=== PATIENT | male | born 1965 | race Caucasian/White ===

== ENCOUNTER → 2017-11-11 16:26 | Outpatient (CLI) | payer BC, SELFPAY ==
--- NOTE | 2017-11-11 16:39 | XR_ITS ---
XR chest 2V HISTORY: ITS.REASON: RT. SIDED ABD. PAIN; RT. LOWER CHEST PAIN ORDERING PHYSICIAN: Viviane Sanders PATIENT AGE: 52 years COMPARISON: 09/26/2010 FINDINGS: The cardiomediastinal silhouette and pulmonary vascularity are within normal limits. The lungs are clear without infiltrates, suspicious nodules, or pleural effusions. No acute bony abnormalities. IMPRESSION: No change with no acute finding
== END ==
PROVIDERS: PCP Nurse Practitioner; Visit Provider Nurse Practitioner
DX: R10.9 Unspecified abdominal pain (principal)
CPT/HCPCS: 71046

== ENCOUNTER → 2017-11-15 09:16 | Outpatient (CLI) | payer BC, SELFPAY ==
--- NOTE | 2017-11-15 09:20 | US_ITS ---
US abdomen limited HISTORY:Right upper quadrant pain. Abdominal pain ORDERING PHYSICIAN: Viviane Sanders PATIENT AGE: 52 years Comparison: Ultrasound right upper quadrant [address] abdomen from 2012 PROCEDURE Sagittal, transverse and decubitus imaging of right upper quadrant performed FINDINGS. Pancreas. Unremarkable. Head body and medial tail are fairly well visualized in satisfactory Liver. Diffuse fatty changes liver. No focal lesions no bilirubin ductal dilatation. Portal vein with normal direction flow and size. ... Gallbladder surgically absent. Right kidney: Unremarkable appearing. No hydronephrosis 11.8 cm in length cortex well-maintained. IMPRESSION: 1. Gallbladder surgically absent 2.. Fatty changes liver. 3. Otherwise unremarkable right quadrant ultrasound
== END ==
PROVIDERS: PCP Nurse Practitioner; Visit Provider Nurse Practitioner
DX: R10.9 Unspecified abdominal pain (principal)
CPT/HCPCS: 76705

== ENCOUNTER → 2019-12-23 16:24 | Outpatient (CLI) | payer OTHER, SELFPAY ==
[2019-12-23 18:23] LABS: Coronavirus 19 IgG Antibody Negative (Negative); Coronavirus 19 IgM Antibody Negative (Negative)
== END ==
PROVIDERS: PCP Family Medicine; Visit Provider Family Medicine
DX: Z03.818 Encounter for observation for suspected exposure to other biological agents ruled out (principal)
CPT/HCPCS: 36415; 86328

== ENCOUNTER 2020-12-25 14:37 | Emergency (ER) | payer OTHER, SELFPAY ==
[2020-12-25 15:22] VITALS: BP 132/77; PULSE 77; RESP 19; TEMP 36.6; O2SAT 98; BMI 38.7
--- NOTE | 2020-12-25 15:37 | HMH.EDUTC ---
[facility] [place] Clinical Impression: Sinusitis Qualifiers: Sinusitis location: unspecified location Chronicity: acute Recurrence: non-recurrent Qualified Code(s): J01.90 - Acute sinusitis, unspecified Disposition: Home, Self-Care Condition on Discharge: Good Instructions: Sinusitis, DI for Sinusitis Additional Instructions: Drink plenty of fluids. Take tylenol or ibuprofen for pain or fever. Take the medications as directed. Follow up with your regular doctor. GO TO THE ER FOR ANY WORSENING SYMPTOMS Prescriptions: guaiFENesin [Mucinex 600mg tablet] 1 - 2 tab PO BIDP PRN #30 tab PRN Reason: Congestion Transmission Status: Received by [id number] Benzonatate [Tessalon Perle 100mg Cap] 100 mg PO TIDP PRN #30 cap PRN Reason: Cough Transmission Status: Received by [id number] Azithromycin [Z-Henrique 250mg Tab*] 250 mg PO UD DOSE PK #6 tab Transmission Status: Received by [id number] Referrals: Sonny Patten MD [Primary Care Provider] - Time of Disposition: 15:52 Medical Decision Making - Medical Records Medical records reviewed: No: I reviewed the patient's medical records. - Pola Inquiry Pt receiving controlled substance: No Vital Signs: 12/25/20 15:22 12/25/20 15:58 Temperature 97.9 F 98.4 F Temperature Source Oral Pulse Rate 77 Pulse Rate [Left] 77 Respiratory Rate 19 18 Blood Pressure 132/77 Blood Pressure [Right Arm] 132/77 Blood Pressure Mean [Right Arm] 95 02 Sat by Pulse Oximetry 98 Orders (Tests/Meds): ED MEDICATIONS Discontinued Medications Generic Name Dose Route Start Last Admin Trade Name Freq PRN Reason Stop Dose Admin Methylprednisolone Sodium Succinate 125 mg 12/25/20 15:39 12/25/20 15:52 Methylprednisolone Sod Succ 125mg Vial IM 12/25/20 15:40 125 mg ONCE ONE Administration Medical Decision Narrative: He refused a covid-19 test [facility] [place] - General Stated complaint: upper respiratory Time Seen by Provider: 12/25/20 15:37 Mode of Arrival: Ambulatory Source of Information: Patient Limitations: No Limitations Description of Symptoms (Recalled from Triage Doc. by RN): pt c/o head and chest congestion HEENT Symptoms (Recalled from RN notes): Yes (sinus congestion) Resp Symptoms (Recalled from RN notes): Yes (chest congestion) Skin Symptoms (Recalled from RN notes): No MS Symptoms (Recalled from RN notes): No Functional Status (Recalled from RN notes): na - History of Present Illness Provider Complaint: He states that he has had sinus congestion and sinus pressure for the past 3 days. He denies any covid-19 exposure. He has not been vaccinated, but he works from home and is not around anyone very often. - Related Data Home Medications Medication Instructions Recorded Confirmed [facility] wort 300 mg tablet 300 mg PO BID tab 04/04/17 cetirizine 10 mg tablet 10 mg PO ONCE tab 04/04/17 clopidogrel 75 mg tablet 10 mg PO ONCE tab 04/04/17 fluticasone 100 mcg-salmeterol 50 1 puff INHALATION BID 04/04/17 mcg/dose blistr powdr for inhalation glyburide 5 mg tablet 2.5 mg PO BID tab 04/04/17 guaifenesin 600 mg tablet, 400 mg PO BID PRN tab 04/04/17 extended release 12 hr lisinopril 10 mg tablet 5 mg PO ONCE tab 04/04/17 metformin 500 mg tablet 500 mg PO BID 04/04/17 metoprolol tartrate 100 mg tablet 100 mg PO ONCE tab 04/04/17 montelukast 10 mg tablet 10 mg PO ONCE tab 04/04/17 pravastatin 20 mg tablet 10 mg PO ONCE tab 04/04/17 Previous Rx's Medication Instructions Recorded Azithromycin [Z-Henrique 250mg Tab*] 250 mg PO UD DOSE PK #6 tab 12/25/20 Benzonatate [Tessalon Perle 100mg 100 mg PO TIDP PRN #30 cap 12/25/20 Cap] guaiFENesin [Mucinex 600mg tablet] 1 - 2 tab PO BIDP PRN #30 tab 12/25/20 Allergies Allergy/AdvReac Type Severity Reaction Status Date / Time codeine Allergy Intermediate Verified 04/04/17 11:00 Diphenhydramine Allergy Unknown Uncoded 04/04/17 10:59
[2020-12-25 15:58] VITALS: BP 132/77; PULSE 77; RESP 18; TEMP 36.9
== END 2020-12-25 16:00 | disposition home or self-care (01) ==
PROVIDERS: Emergency Provider Nurse Practitioner Family; PCP Family Medicine
DX: J01.90 Acute sinusitis, unspecified (principal)
CPT/HCPCS: 96372; 99202; G0463

== ENCOUNTER 2021-09-02 08:55 | Emergency (ER) | payer OTHER, SELFPAY ==
[2021-09-02 09:12] VITALS: BP 126/82; PULSE 68; RESP 16; TEMP 36.4; O2SAT 97; BMI 38.7
--- NOTE | 2021-09-02 09:15 | HMH.EDUTC ---
[facility] [place] Disposition Clinical Impression: Puncture wound of left middle finger, Need for Tdap vaccination Diabetes Qualifiers: Diabetes mellitus type: type 2 Diabetes mellitus custodial insulin use: unspecified medical terminologist insulin use status Diabetes mellitus complication status: with other specified complication Qualified Code(s): E11.69 - Type 2 diabetes mellitus with other specified complication Disposition: Home, Self-Care Condition on Discharge: Good Instructions: DI for Puncture Wound, Tetanus, Diphtheria, Pertussis (Tdap) Vaccine Additional Instructions: Keep the wound clean and dry. Watch the for signs of infection, such as redness, swelling, drainage, fever. etc. Take tylenol for pain. Follow up with your regular doctor. GO TO THE ER FOR ANY WORSENING SYMPTOMS OR CONCERNS. Prescriptions: Mupirocin [Bactroban 2% Ointment 22gm tube] 1 applicatio TP TID 7 Days #1 gm Transmission Status: [id number] cephALEXin [cephALEXin 500mg capsule] 500 mg PO Q6H 10 Days #40 cap Transmission Status: Received by [id number] Referrals: Carolyne Anderosn APRN [Primary Care Provider] - Time of Disposition: 09:43 Medical Decision Making - Medical Records Medical records reviewed: No: I reviewed the patient's medical records. - Pola Inquiry Pt receiving controlled substance: No Vital Signs: 09/02/21 09:12 09/02/21 09:55 Temperature 97.5 F L 97.5 F L Temperature Source Oral Pulse Rate 68 Pulse Rate [Left Radial] 68 Respiratory Rate 16 16 Blood Pressure 126/82 Blood Pressure [Right Arm] 126/82 Blood Pressure Mean [Right Arm] 96 02 Sat by Pulse Oximetry 97 Orders (Tests/Meds): ED MEDICATIONS Discontinued Medications Generic Name Dose Route Start Last Admin Trade Name Freq PRN Reason Stop Dose Admin Tetanus Immune Globulin 250 unit 09/02/21 09:15 09/02/21 09:16 Tetanus Immune Globulin 250 Units IM 09/02/21 09:16 Not Given ONCE ONE Tetanus/Diphtheria Toxoids 0.5 ml 09/02/21 09:17 09/02/21 09:18 Tetanus-Diphth Toxoid, Adult 0.5ml Syr IM 09/02/21 09:18 0.5 ml .ONCE ONE Administration [facility] [place] HPI - General Stated complaint: finger lac 09/01 Time Seen by Provider: 09/02/21 09:15 Description of Symptoms (Recalled from Triage Doc. by RN): patient comes in today for a tetanus shot. patient states that a carie nail pierced his skin on his left middle finger. patient also states that last tetanus shot was over 20 years ago HEENT Symptoms (Recalled from RN notes): No Resp Symptoms (Recalled from RN notes): No Skin Symptoms (Recalled from RN notes): No MS Symptoms (Recalled from RN notes): No Functional Status (Recalled from RN notes): wnl - History of Present Illness Provider Complaint: He is here today needing a tetanus shot. He states that a carie nail pierced his skin on his left middle finger last night. His last tetanus shot was over 20 years ago - Related Data Home Medications Medication Instructions Recorded Confirmed [facility]'s wort 300 mg tablet 300 mg PO BID tab 04/04/17 cetirizine 10 mg tablet 10 mg PO ONCE tab 04/04/17 clopidogrel 75 mg tablet 10 mg PO ONCE tab 04/04/17 fluticasone 100 mcg-salmeterol 50 1 puff INHALATION BID 04/04/17 mcg/dose blistr powdr for inhalation glyburide 5 mg tablet 2.5 mg PO BID tab 04/04/17 guaifenesin 600 mg tablet, 400 mg PO BID PRN tab 04/04/17 extended release 12 hr lisinopril 10 mg tablet 5 mg PO ONCE tab 04/04/17 metformin 500 mg tablet 500 mg PO BID 04/04/17 metoprolol tartrate 100 mg tablet 100 mg PO ONCE tab 04/04/17 montelukast 10 mg tablet 10 mg PO ONCE tab 04/04/17 pravastatin 20 mg tablet 10 mg PO ONCE tab 04/04/17 Previous Rx's Medication Instructions Recorded Azithromycin [Z-Henrique 250mg Tab*] 250 mg PO UD DOSE PK #6 tab 12/25/20 Benzonatate [Tessalon Perle 100mg 100 mg PO TIDP PRN #30 cap 12/25/20 Cap] guaiFENesin [Mucinex 600mg tablet] 1
[2021-09-02 09:55] VITALS: BP 126/82; PULSE 68; RESP 16; TEMP 36.4
== END 2021-09-02 09:56 | disposition home or self-care (01) ==
PROVIDERS: Emergency Provider Nurse Practitioner Family; PCP Nurse Practitioner Family
DX: S61.233A Puncture wound without foreign body of left middle finger without damage to nail, initial encounter (principal); I25.10 Atherosclerotic heart disease of native coronary artery without angina pectoris; E11.69 Type 2 diabetes mellitus with other specified complication; Z79.4 Long term (current) use of insulin; Z79.84 Long term (current) use of oral hypoglycemic drugs; Z79.02 Long term (current) use of antithrombotics/antiplatelets; Z79.899 Other long term (current) drug therapy; Z79.51 Long term (current) use of inhaled steroids; Z88.5 Allergy status to narcotic agent; Z88.8 Allergy status to other drugs, medicaments and biological substances; Z23 Encounter for immunization; Z82.49 Family history of ischemic heart disease and other diseases of the circulatory system; Z83.438 Family history of other disorder of lipoprotein metabolism and other lipidemia; Z84.1 Family history of disorders of kidney and ureter; Z83.3 Family history of diabetes mellitus; Z80.9 Family history of malignant neoplasm, unspecified
CPT/HCPCS: 90471; 90714; 99213; G0463

== ENCOUNTER → 2022-02-13 14:52 | Outpatient (POV) | payer OTHER, SELFPAY | PROVIDERS: Visit Provider Dermatology | DX: Z00.00 Encounter for general adult medical examination without abnormal findings (principal) ==

== ENCOUNTER 2022-02-13 18:56 | Emergency (ER) | payer BC, SELFPAY ==
[2022-02-13 19:05] VITALS: BP 107/60; PULSE 72; RESP 18; TEMP 36.8; O2SAT 98; BMI 36.5
--- NOTE | 2022-02-13 19:12 | PC.NURSE ---
NAHOMY LOUIS at
[2022-02-13 19:30] VITALS: BP 101/63; PULSE 74; O2SAT 97
--- NOTE | 2022-02-13 19:32 | HMH.EDGENADL ---
Discharge Plan Disposition Chief Complaint: Skin/Abscess/Foreign Body Prescriptions Prescriptions: No Action metformin 500 mg tablet 500 mg PO BID glyburide 5 mg tablet 2.5 mg PO BID montelukast [Singulair] 10 mg tablet 10 mg PO ONCE clopidogrel [Plavix] 75 mg tablet 10 mg PO ONCE lisinopril 10 mg tablet 5 mg PO ONCE metoprolol tartrate 100 mg tablet 100 mg PO ONCE pravastatin 20 mg tablet 10 mg PO ONCE cetirizine [Zyrtec] 10 mg tablet 10 mg PO ONCE [facility]'s wort 300 mg tablet 300 mg PO BID guaifenesin [Mucinex] 600 mg tablet extended release 12hr 400 mg PO BID PRN fluticasone propion-salmeterol [Advair Diskus] 100-50 mcg/dose blister with device 1 puff INHALATION BID cephalexin 500 MG capsule 500 mg PO Q6H 10 Days Qty: 40 0RF mupirocin 22 GM ointment 1 applicatio TP TID 7 Days Qty: 1 0RF azithromycin 250 MG tablet 250 mg PO UD DOSE PK Qty: 6 0RF Rx Instructions: Take two (2) tablets today, then one (1) tablet days #2 thru #5 benzonatate 100 MG capsule 100 mg PO TIDP PRN (Reason: Cough) Qty: 30 0RF guaifenesin 600 MG tablet extended release 12hr 1 - 2 tab PO BIDP PRN (Reason: Congestion) Qty: 30 0RF Referrals Follow up/Referrals: Sonny Patten MD [Primary Care Provider] - See instructions Activity Restrictions/Add. Instructions Additional Instructions/Restrictions: You have been evaluated for postoperative wound bleeding. Please keep wound clean and dry. Follow-up with your primary surgeon as soon as available. Return to the emergency department at once for any new or worsening symptoms, pain, bleeding, other concerns. Clinical Impressions Clinical Impression: Bleeding from wound Instructions Patient Instructions: DI for Wound Dehiscence Discharge ED Provider: Milagros Leonard Adult [facility] General Chief complaint: Skin/Abscess/Foreign Body Stated complaint: post op on groin area bleeding Time Seen by Provider: 02/13/22 19:11 Mode of Arrival: Wheelchair Source of Information: Patient Limitations: No Limitations Description of Symptoms (Recalled from ER Triage Doc. by RN): Pt reports bleeding noted from sutures in L lower abd from surgery earlier today. 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 Pt reports began bleeding at approx 1820 tonight. Pt dressing that was in place was saturated, blood noted on pt clothing. Bruising noted to end of sutured area closest to pts R hip, a clot has formed in the suture line in this same area. Oozing noted from sutures in the middle of incision. 4x4s placed incision area. History of Present Illness HPI narrative: 56-year-old male presenting to the emergency department with bleeding from a surgical wound. Earlier today, he had hidradenitis removal with general surgeon Dr. Pulliam ([facility] [place] well after the surgery. Went home. Later this evening went to the restroom and realized there was bleeding from the edge of the wound margin. The wound has been repaired with sutures. Tried to control the bleeding, but it continued to ooze. Blood soaked the bandages. He does not take blood thinner medication. Related Data Home Medications Medication Instructions Recorded Confirmed [facility]'s wort 300 mg tablet 300 mg PO BID 04/04/17 cetirizine 10 mg tablet (Zyrtec) 10 mg PO ONCE 04/04/17 clopidogrel 75 mg tablet (Plavix) 10 mg PO ONCE 04/04/17 fluticasone 100 mcg-salmeterol 50 1 puff inhalation BID allergies 04/04/17 mcg/dose blistr powdr for inhalation (Advair Diskus) glyburide 5 mg tablet 2.5 mg PO BID 04/04/17 guaifenesin 600 mg tablet, 400 mg PO BID PRN 04/04/17 extended release 12 hr (Mucinex) lisinopril 10 mg tablet 5 mg PO ONCE 04/04/17 metformin 500 mg tablet 500 mg PO BID 04/04/17 metoprolol tartrate 100 mg tablet 100 mg PO ONCE 04/04/17 montelukast 10 mg tablet 10
--- NOTE | 2022-02-13 19:47 | PC.NURSE ---
shift change report give to neema burns and addyrn
[2022-02-13 20:30] VITALS: BP 131/88; PULSE 72; O2SAT 98
[2022-02-13 21:30] VITALS: BP 116/76; PULSE 70; O2SAT 96
[2022-02-13 22:17] VITALS: BP 115/71; PULSE 72; RESP 16; TEMP 36.6; O2SAT 97
== END 2022-02-13 22:24 | disposition home or self-care (01) ==
PROVIDERS: Emergency Provider Emergency Medicine; PCP Family Medicine
DX: T81.30XA Disruption of wound, unspecified, initial encounter (principal); L76.32 Postprocedural hematoma of skin and subcutaneous tissue following other procedure; N50.9 Disorder of male genital organs, unspecified; R09.81 Nasal congestion; Z79.02 Long term (current) use of antithrombotics/antiplatelets; Z79.51 Long term (current) use of inhaled steroids; Z79.84 Long term (current) use of oral hypoglycemic drugs; Z79.899 Other long term (current) drug therapy; Z88.5 Allergy status to narcotic agent; Z88.8 Allergy status to other drugs, medicaments and biological substances; Z98.890 Other specified postprocedural states
CPT/HCPCS: 99283

== ENCOUNTER → 2022-02-20 14:57 | Outpatient (POV) | payer BC, SELFPAY | PROVIDERS: Visit Provider Dermatology | DX: Z00.00 Encounter for general adult medical examination without abnormal findings (principal) ==

== ENCOUNTER → 2022-04-03 16:15 | Outpatient (POV) | payer BC, SELFPAY | PROVIDERS: Visit Provider Dermatology | DX: Z00.00 Encounter for general adult medical examination without abnormal findings (principal) ==

== ENCOUNTER 2022-07-27 16:44 | Emergency (ER) | payer BC, SELFPAY ==
[2022-07-27 17:00] VITALS: BP 112/58; PULSE 82; RESP 20; TEMP 36.7; O2SAT 98; BMI 35.6
--- NOTE | 2022-07-27 17:25 | EXP.UTC ---
Discharge Plan Disposition Patient Disposition: Home, Self-Care Condition: Good Prescriptions Prescriptions: New methylprednisolone 4 mg Tablets,Dose Pack 4 mg PO DIRECTED Qty: 21 0RF triamcinolone acetonide 0.1 % cream 1 applic topical TID PRN (Reason: itching) 10 Days Qty: 30 0RF No Action metformin 500 mg tablet 1,000 mg PO BID glyburide 5 mg tablet 10 mg PO BID clopidogrel [Plavix] 75 mg tablet 10 mg PO ONCE lisinopril 10 mg tablet 5 mg PO ONCE metoprolol tartrate 100 mg tablet 100 mg PO ONCE Referrals Follow up/Referrals: Sonny Patten MD [Primary Care Provider] - See instructions Activity Restrictions/Add. Instructions Additional Instructions/Restrictions: Try to identify and avoid contact with the offending substance. Don't start the oral steroids until tomorrow. Don't put the topical steroids (triamcinolone) on your face or your groin. Follow up with your regular doctor. GO TO THE ER FOR ANY WORSENING SYMPTOMS OR CONCERNS Clinical Impressions Clinical Impression: Contact dermatitis Instructions Patient Instructions: Poison Yoav, Poison [place], Poison [place], Contact Dermatitis, DI for Contact Dermatitis Discharge ED Provider: Sachin Maharaj [facility] [place] General Stated complaint: Possible Posion Yoav rash Mode of Arrival: Ambulatory Source of Information: Patient Limitations: No Limitations Time Seen by Provider: 07/27/22 17:25 Description of Symptoms (Recalled from Triage Doc. by RN): PATIENT C/O POISON YOAV/SUM[place] RASH ALL OVER SINCE SATURDAY. POSSIBLE EXPOSURE ON SATURDAY HEENT Symptoms (Recalled from RN notes): No Resp Symptoms (Recalled from RN notes): No Skin Symptoms (Recalled from RN notes): Yes MS Symptoms (Recalled from RN notes): No Functional Status (Recalled from RN notes): WNL History of Present Illness Provider Complaint: He states that for the past 1 week he has had skin rash and itching of his face, chest, neck, bilateral arms, hands, and groin. Related Data Home Medications Medication Instructions Recorded Confirmed clopidogrel 75 mg tablet (Plavix) 10 mg PO ONCE Blood thinner 04/04/17 07/27/22 glyburide 5 mg tablet 10 mg PO BID Diabetes 04/04/17 07/27/22 lisinopril 10 mg tablet 5 mg PO ONCE Hypertension 04/04/17 07/27/22 metformin 500 mg tablet 1,000 mg PO BID Diabetes 04/04/17 07/27/22 metoprolol tartrate 100 mg tablet 100 mg PO ONCE Hypertension 04/04/17 07/27/22 Previous Rx's Medication Instructions Recorded methylprednisolone 4 mg tablets in 4 mg PO DIRECTED #21 tabs 07/27/22 a dose pack triamcinolone acetonide 0.1 % 1 applic topical TID PRN itching 07/27/22 topical cream 10 days #30 grams Allergies Allergy/AdvReac Type Severity Reaction Status Date / Time codeine Allergy Intermediate Verified 04/04/17 11:00 Diphenhydramine Allergy Unknown Uncoded 04/04/17 10:59 Worker's Comp Is this a Worker's Comp case?: No [facility] Disclaimer: The information contained in this section may have been updated after the patient was seen, as this information can be updated by other users. Medical History Anxiety Asthma Depression Diabetes mellitus, type 2 Hyperlipidemia Hypertension Kidney stones Surgical History H/O vasectomy History of cardiac cath History of cholecystectomy History of heart artery stent Social History Smoking Status: Never smoker alcohol intake: never substance use type: other current occupational status: employed Travel in the last 8 weeks: None ROS Obtained: Yes All systems reviewed & no additional complaints except as documented Constitutional Constitutional: Denies chills and Denies fever(s) Eyes Eyes: Denies eye discharge ENT Ears, Nose, Mouth, and Throat: Denies dizziness, Denies otalgia and Denies sore th
[2022-07-27 17:55] VITALS: BP 112/58; PULSE 82; RESP 20; TEMP 36.7; O2SAT 98
== END 2022-07-27 18:04 | disposition home or self-care (01) ==
PROVIDERS: Emergency Provider Nurse Practitioner Family; PCP Family Medicine
DX: L25.9 Unspecified contact dermatitis, unspecified cause (principal); E11.9 Type 2 diabetes mellitus without complications; I10 Essential (primary) hypertension; E78.5 Hyperlipidemia, unspecified
CPT/HCPCS: 96372; 99212; 99214; G0463

== ENCOUNTER 2022-08-09 13:01 | Emergency (ER) | payer BC, SELFPAY ==
[2022-08-09 13:02] VITALS: BP 105/51; PULSE 64; RESP 18; TEMP 36.9; O2SAT 94; BMI 35.6
--- NOTE | 2022-08-09 13:14 | EXP.UTC ---
Discharge Plan Disposition Patient Disposition: Home, Self-Care Condition: Good Prescriptions Prescriptions: New amoxicillin-pot clavulanate 875-125 mg Tablet 1 tab PO Q12H Qty: 20 0RF benzonatate [benzonatate] 100 mg capsule 100 mg PO TIDP PRN (Reason: Cough) Qty: 30 0RF methylprednisolone 4 mg Tablets,Dose Pack 4 mg PO DIRECTED Qty: 21 0RF No Action metformin 500 mg tablet 1,000 mg PO BID glyburide 5 mg tablet 10 mg PO BID clopidogrel [Plavix] 75 mg tablet 10 mg PO ONCE lisinopril 10 mg tablet 5 mg PO ONCE metoprolol tartrate 100 mg tablet 100 mg PO ONCE methylprednisolone 4 mg Tablets,Dose Pack 4 mg PO DIRECTED Qty: 21 0RF triamcinolone acetonide 0.1 % cream 1 applic topical TID PRN (Reason: itching) 10 Days Qty: 30 0RF Referrals Follow up/Referrals: Sonny Patten MD [Primary Care Provider] - See instructions Activity Restrictions/Add. Instructions Additional Instructions/Restrictions: Drink plenty of fluids. Take tylenol or ibuprofen for pain or fever. Take the medications as directed. Follow up with your regular doctor. GO TO THE ER FOR ANY WORSENING SYMPTOMS Clinical Impressions Clinical Impression: Acute bronchitis Instructions Patient Instructions: Acute Bronchitis, DI for Acute Bronchitis Discharge ED Provider: Sachin Maharaj [facility] [place] HPI General Stated complaint: Chest congestion, cough, drainage Time Seen by Provider: 08/09/22 13:14 History of Present Illness Provider Complaint: He states that for the past 3 days he has had chest and sinus congestion. He states that his chest feels tight when he takes a deep breath. He denies any chest pain. Related Data Home Medications Medication Instructions Recorded Confirmed clopidogrel 75 mg tablet (Plavix) 10 mg PO ONCE Blood thinner 04/04/17 07/27/22 glyburide 5 mg tablet 10 mg PO BID Diabetes 04/04/17 07/27/22 lisinopril 10 mg tablet 5 mg PO ONCE Hypertension 04/04/17 07/27/22 metformin 500 mg tablet 1,000 mg PO BID Diabetes 04/04/17 07/27/22 metoprolol tartrate 100 mg tablet 100 mg PO ONCE Hypertension 04/04/17 07/27/22 Previous Rx's Medication Instructions Recorded methylprednisolone 4 mg tablets in 4 mg PO DIRECTED #21 tabs 07/27/22 a dose pack triamcinolone acetonide 0.1 % 1 applic topical TID PRN itching 07/27/22 topical cream 10 days #30 grams amoxicillin 875 mg-potassium 1 tab PO Q12H #20 tabs 08/09/22 clavulanate 125 mg tablet benzonatate 100 mg capsule 100 mg PO TIDP PRN Cough #30 caps 08/09/22 methylprednisolone 4 mg tablets in 4 mg PO DIRECTED #21 tabs 08/09/22 a dose pack Allergies Allergy/AdvReac Type Severity Reaction Status Date / Time codeine Allergy Intermediate Verified 04/04/17 11:00 Diphenhydramine Allergy Unknown Uncoded 04/04/17 10:59 [facility] Disclaimer: The information contained in this section may have been updated after the patient was seen, as this information can be updated by other users. Medical History Anxiety Asthma Depression Diabetes mellitus, type 2 Hyperlipidemia Hypertension Kidney stones Surgical History H/O vasectomy History of cardiac cath History of cholecystectomy History of heart artery stent Social History Smoking Status: Never smoker alcohol intake: never substance use type: other current occupational status: employed Travel in the last 8 weeks: None ROS Obtained: Yes All systems reviewed & no additional complaints except as documented Constitutional Constitutional: Reports poor appetite Eyes Eyes: Reports system reviewed and no additional complaints, except as documented ENT Ears, Nose, Mouth, and Throat: Reports as per HPI Cardiovascular Cardiovascular: Reports system reviewed and no additional compl
--- NOTE | 2022-08-09 13:21 | XR_ITS ---
FINAL REPORT CLINICAL HISTORY: sob COMPARISON: 11/11/2017 FINDINGS: Two views of the chest were obtained. The heart size and pulmonary vascularity are within normal limits. The mediastinum is normal. No acute pulmonary abnormality is identified. There is no pneumothorax. The bony thorax is intact. IMPRESSION: No active cardiopulmonary disease. Reviewed, Interpreted and Dictated by Gunnar Magallanes III, MD Transcribed by Cathi Woodson Authenticated and [facility]
[2022-08-09 14:16] VITALS: BP 106/60; PULSE 64; RESP 18; TEMP 36.9; O2SAT 95
== END 2022-08-09 14:18 | disposition home or self-care (01) ==
PROVIDERS: Emergency Provider Nurse Practitioner Family; PCP Family Medicine
DX: J20.9 Acute bronchitis, unspecified (principal); E11.9 Type 2 diabetes mellitus without complications; I10 Essential (primary) hypertension; E78.5 Hyperlipidemia, unspecified; F41.9 Anxiety disorder, unspecified; F32.9 Major depressive disorder, single episode, unspecified; Z79.84 Long term (current) use of oral hypoglycemic drugs
CPT/HCPCS: 71046; 99212; 99214; G0463